=== PATIENT | female | born 1965 | race Caucasian/White ===

== ENCOUNTER → 2017-08-25 | Outpatient (CLI) | payer OTHER | END | disposition home or self-care (01) | LOC: KCIC MAMMO 07:56 | DX: Z12.31 Encounter for screening mammogram for malignant neoplasm of breast (principal) | CPT/HCPCS: 77067 ==

== ENCOUNTER → 2017-09-02 | Outpatient (CLI) | payer OTHER | END | disposition home or self-care (01) | LOC: KCIC US 09:32 | DX: R92.8 Other abnormal and inconclusive findings on diagnostic imaging of breast (principal) | CPT/HCPCS: 76641 ==

== ENCOUNTER → 2018-03-23 | Outpatient (CLI) | payer OTHER ==
[2015-08-07 20:59] VITALS: BP 139/69
--- NOTE | 2018-03-23 09:44 | KCIC ---
History: Follow-up asymmetric tissue density left breast. Technique: Left unilateral digital mammographic routine views were obtained with CAD - computer aided detection. Comparison: August 25, 2017. Findings: Breast Tissue Density B :The breast tissue is composed of mixed fatty and fibroglandular tissue. There are no suspicious masses, microcalcifications or areas of architectural distortion. Impression: Negative mammogram. BI-RADS Category 1: Negative. Normal interval followup with a bilateral mammogram in August. These results were given to the patient in person. A mammogram does not have 100% sensitivity and therefore a negative imaging study should not delay further work up of a suspicious abnormality. The patient will receive a letter with the results in the mail. Patient information is entered into the reminder system with a target due date for the next screening mammogram. The patient will receive a reminder. "Our facility is accredited by the [employer] Mammography Program." Electronically signed by: Balbir Rogel III, MD (03/23/2018 9:40 AM) [id number]
--- NOTE | 2018-03-23 09:48 | KCIC ---
Left breast diagnostic ultrasound HISTORY: Abnormal ultrasound Sonographic evaluation of the left breast was performed and multiple static images obtained COMPARISON: August 23, 2017 The small benign-appearing lesion in the 1:00 left breast 7 cm from the nipple was seen previously and appears unchanged and measures approximately 7 x 2 mm is well-circumscribed non-shadow and is likely fibrocystic changes. There is normal-appearing lymph nodes in left axilla. IMPRESSION: No suspicious findings. BI-RADS Category 1: Negative. Electronically signed by: Balbir Rogel III, MD (03/23/2018 9:44 AM) [id number]
== END | disposition home or self-care (01) ==
LOC: KCIC US 07:49
PROVIDERS: ATTEND Internal Medicine
DX: R92.8 Other abnormal and inconclusive findings on diagnostic imaging of breast (principal)
CPT/HCPCS: 76641; 77065

== ENCOUNTER → 2018-04-20 | Outpatient (CLI) | payer OTHER ==
[2015-08-07 20:59] VITALS: BP 139/69
--- NOTE | 2018-04-20 08:48 | KCIC ---
EXAMINATION: Magnetic resonance imaging (MRI) of the lumbar spine without contrast 04/20/2018 8:00 AM HISTORY: Lumbar radiculopathy. Left-sided radiculopathy.. TECHNIQUE: Multiplanar multi-weighted MRI of the lumbar spine was performed without intravenous contrast using the standard lumbar spine protocol. Contrast information: None administered. COMPARISON: None available. FINDINGS: There is minimal retrolisthesis of L4 on L5 and L5 on S1. Vertebral body heights are maintained. Marrow signal intensity is normal on all sequences. There is mild disc height loss and disc desiccation at L4-L5 and moderate disc height loss with disc desiccation at L5-S1. Annular fissures are identified at L4-L5 and L5-S1. Mild disc desiccation is noted at L2-L3. There is medullary terminates at L1-L2. Distal spinal cord signal intensity is normal in all sequences. Mild anterior marginal osteophytosis is noted. Abdominal aorta is normal in caliber. No suspicious retroperitoneal abnormality is identified. Visualized portions of the kidneys appear normal. L2-L3: There is mild disc bulge. Mild facet arthropathy. There is no significant neuroforaminal or spinal canal stenosis. L3-L4: There is mild disc bulge. Is moderate facet arthropathy. No significant neuroforaminal or spinal canal stenosis. L4-L5: There is moderate disc bulge with central annular fissure. Moderate facet arthropathy. Moderate bilateral neuroforaminal stenosis. Mild spinal canal stenosis. L5-S1: There is a mild circumferential disc bulge with central disc protrusion. There is moderate facet arthropathy. There is moderate bilateral neuroforaminal stenosis, right greater than left. No significant spinal canal stenosis. IMPRESSION: Mild degenerative changes of the lumbar spine, most prominent at L4-L5 and L5-S1 with minimal retrolisthesis of L4 on L5 and L5 on S1. Electronically signed by: Didi Mauricio MD (04/20/2018 8:44 AM) [facility]
== END | disposition home or self-care (01) ==
LOC: KCIC MRI 07:33
PROVIDERS: ATTEND Family Medicine Sports Medicine
DX: M51.27 Other intervertebral disc displacement, lumbosacral region (principal); M47.26 Other spondylosis with radiculopathy, lumbar region; M48.07 Spinal stenosis, lumbosacral region
CPT/HCPCS: 72148